=== PATIENT | male | born 1955 | race Caucasian/White ===

== ENCOUNTER 2018-02-24 07:55 | Inpatient (IN) | payer BC ==
[2018-02-24 09:04] VITALS: BMI 30.7
[2018-02-24] MEDS ORDERED: oxyCODONE HCL 10 MG SUSTAINED ACTING TABLET ONE (10:08)
[2018-02-24] MEDS ORDERED: CELECOXIB 200 MG CAPSULE ONE (10:09)
[2018-02-24] MEDS ORDERED: SODIUM CHLORIDE 0.9% P/F 10 ML VIAL IJ ONE (10:11)
[2018-02-24] MEDS ORDERED: BUPIVACAINE LIPOSOME/PF (EXPAREL) 266 MG/20 ML VIAL ONE (10:11)
[2018-02-24] MEDS ORDERED: MIDAZOLAM HCL 2 MG/2 ML SINGLE DOSE VIAL ONE ×2 (10:12→12:32)
[2018-02-24] MEDS ORDERED: ROPIVICAINE 0.2%/MORPH PF/KETOROLAC - 51ML DISP.SYRINGE IA ONE (10:44)
[2018-02-24] MEDS ORDERED: PROPOFOL 20 ML ONE ×3 (11:17)
[2018-02-24] MEDS ORDERED: ceFAZolin SODIUM 1 GM VIAL ONE (11:20)
[2018-02-24] MEDS ORDERED: oxyCODONE HCL 5 MG TABLET PO PRN (12:02)
[2018-02-24] MEDS ORDERED: ONDANSETRON 4 MG/2 ML VIAL IVPUSH PRN ×2 (12:02→15:23)
[2018-02-24] MEDS ORDERED: MAG HYDROX/AL HYDROX/SIMETH 30 ML UNIT-DOSE CUP PO PRN (15:23)
[2018-02-24] MEDS ORDERED: LACTATED RINGERS SOLUTION 1,000 ML IV SCH (15:30)
--- NOTE | 2018-02-24 15:37 | OP ---
Operative Note - Note: Operative Date: 02/24/18 Pre-Operative Diagnosis: Left knee osteoarthritis Operation: Left total knee replacement with Raza system Findings: as dictated Implants: as dictated Post-Operative Diagnosis: Same as Pre-op Surgeon: Nabil Swanson Wagon Person: Frantz Zeng Anesthesiologist/JEWELRY COATER: Nasir Johnson Anesthesia: Spinal (block: adductor canal and selective tibial blocks), Local ( 50ml .2%Ropivacaine, 30mg Ketorlac, 5mg Duramorph injected subcutaneous at end of case) Specimens Removed: bone cuts Estimated Blood Loss (mls): 30 (ml. ) Drains & Tubes with Location: HV placed intra-articular Fluid Volume Replaced (mls): 600 (ml LR. Tourniquet time:113mins at 300mmHg)
--- NOTE | 2018-02-24 15:50 | SURG ---
Surgery Lead Vulcanizing Operator Note Lead Vulcanizing Operator: Frantz Zeng PA-C (Suzy) Date of Service: 02/24/18 Diagnosis: left knee osteoarthritis Procedure: left total knee replacement I was present for the entirety of the operative procedure. For further detail, please refer to operative report. Visit type - Case Type Case Type: Scheduled - Emergency Emergency Visit: No - New patient This patient is new to me today: Yes Date on this admission: 02/24/18 - Critical Care Critical Care patient: No
[2018-02-24] MEDS ORDERED: morphine SULFATE 4 MG/ML VIAL IVPUSH PRN (15:53)
[2018-02-24] MEDS: LACTATED RINGERS SOLUTION 1,000 ML IV SCH (17:21)
[2018-02-24] MEDS: FERROUS SO4 325 MG TABLET (FP) PO SCH (17:21)
[2018-02-24] MEDS: ACETAMINOPHEN 500 MG TABLET (FP) PO PRN (17:22)
[2018-02-24] MEDS: SENNOSIDES/DOCUSATE COMBO (SENNA PLUS) TABLET (UD) PO SCH (21:28)
[2018-02-24] MEDS: ASPIRIN 325 MG TABLET PO SCH (21:28)
[2018-02-24] MEDS: ATORVASTATIN CA 10 MG TABLET (FP) PO SCH (21:28)
[2018-02-24] MEDS: ASCORBIC ACID 500 MG TABLET (FP) PO SCH (21:28)
[2018-02-24] MEDS: CELECOXIB 200 MG CAPSULE PO SCH (21:28)
[2018-02-24] MEDS: oxyCODONE HCL 5 MG TABLET PO PRN (21:29)
[2018-02-24] MEDS: CEFAZOLIN 2 GM/D5W 2 GM/50 ML ML IVPB SCH (21:34)
[2018-02-24] MEDS ORDERED: oxyCODONE HCL 10 MG SUSTAINED ACTING TABLET PO SCH (22:00)
[2018-02-25] MEDS: oxyCODONE HCL 5 MG TABLET PO PRN ×5 (00:37→13:23)
[2018-02-25] MEDS: ACETAMINOPHEN 500 MG TABLET (FP) PO PRN ×2 (03:50→11:26)
[2018-02-25] MEDS: CEFAZOLIN 2 GM/D5W 2 GM/50 ML ML IVPB SCH (03:51)
[2018-02-25] MEDS: FERROUS SO4 325 MG TABLET (FP) PO SCH ×2 (08:08→16:58)
[2018-02-25 08:36] LABS: HEMATOCRIT 44.3 % (35.4-49); HEMOGLOBIN 14.9 GM/dl (11.7-16.9); MCH 31.9 pg (25.7-33.7); MCHC 33.6 g/dl (32.0-35.9); MEAN CELL VOLUME 94.9 fl (80-96); MEAN PLT VOLUME 7.9 fl (7.5-11.1); PLATELET COUNT 254 K/MM3 (134-434); RBC 4.66 M/mm3 (4.00-5.60); RDW 12.4 % (11.9-15.9); WHITE BLOOD COUNT 11.8 K/mm3 (4.0-10.8)
[2018-02-25 08:42] LABS: ANION GAP 6 MMOL/L (8-16); BLOOD UREA NITROGEN 21 mg/dl (7-18); CALCIUM 8.5 mg/dl (8.4-10.2); CHLORIDE 102 mmol/L (98-107); CO2 25 mmol/L (22-28); CREATININE 1.1 mg/dl (0.6-1.3); GLUCOSE,RANDOM 122 mg/dl (74-106); POTASSIUM 4.1 mmol/L (3.5-5.1); SODIUM 133 mmol/L (136-145)
--- NOTE | 2018-02-25 09:23 | OP ---
DATE OF OPERATION: 02/24/2018 PREOPERATIVE DIAGNOSIS: Left knee osteoarthritis. POSTOPERATIVE DIAGNOSIS: Left knee osteoarthritis. OPERATION PERFORMED: Left posterior-stabilized total knee arthroplasty. SURGEON: Nabil Swanson MD BANDAGE WINDING MACHINE OPERATOR: PRATIK TYPE OF ANESTHESIA: Spinal and block. DISPOSITION: Patient returned to the recovery room in stable condition. COMPONENTS USED: [employer] size 4 Press-Fit femur, size 5 Press-Fit tibia, a 13-mm posterior-stabilized articular insert, and 31-mm cemented patella. DISPOSITION: Patient returned to the recovery room in stable condition. DRAINS PLACED: One Hemovac. ESTIMATED BLOOD LOSS: Less than 50 mL. TOTAL TOURNIQUET TIME: 110 minutes. Releases were needed to a medial soft tissue release as well as a full medial release with an elevator down the medial tibia. Preoperative flexion contracture of 15 degrees and varus of 12 degrees. Postoperative range of motion 0-135 degrees, equal balance in varus and valgus stress, and flexion and extension. FINDINGS: Severe tricompartmental arthritis. INDICATIONS FOR PROCEDURE: Patient failed nonoperative treatment for left knee arthritis and was indicated for left total knee replacement. Preoperatively in the waiting area as well as in the office, I had a long discussion with the patient regarding the plan, the expected outcome, and the risks, benefits, and alternatives of surgery. The risks include, but are not limited to, infection which may require future surgery and removal of implants; bleeding which may require transfusion; damage to nerves, arteries, veins, tendons, muscles, and other adjacent structures leading to possible numbness, weakness, decreased function, and/or possible need for surgical repair. Also discussed was the possibility of intraoperative and postoperative fractures, implant loosening, stiffness, need for extensive therapy, and need for revision for a variety of reasons. We also discussed blood clots and other possible medical complications. This was discussed at length, and consent was obtained. PROCEDURE IN DETAIL: Patient was taken to the operating room and placed on the operating table in supine position. Following induction of spinal anesthesia, a well-padded tourniquet was placed high on the left thigh, and the left lower extremity was prepped and draped in a sterile fashion. A timeout was performed to confirm the correct side, verify that the site was marked, and confirm the correct patient and procedure to be performed as well as that the patient received the appropriate preoperative antibiotics and tranexamic acid and had a compression device on the nonoperative leg. Tourniquet was elevated, followed by a midline incision in the medial parapatellar arthrotomy. Checkpoints were placed in the tibia and femur. Arrays were placed in the tibia and femur, and the patient was registered. Varus/valgus stress was performed in flexion and extension. We adjusted the robot and cuts appropriately. However, even with this reaching maximum acceptable values, we could not obtain equal balance with it, and we planned for release of soft tissues after bony cuts. We then made all our bony cuts while protecting the surrounding soft tissues. A laminar ice cream vault worker was placed sequentially in the medial and lateral joint spaces. Posterior osteophytes, cruciate ligaments, and menisci were all excised. We then placed a spacer block, and in order to obtain appropriate balance, we needed to run an elevator below the pes, down the medial tibia, releasing the superficial MCL. Once this was done, we had equal balance in both flexion and extension and to varus and valgus stress. We then placed a trial tibial component and femoral component after cutting the box, and with a 13-mm polyethylene, we had appropriate balance, soft tissue tension, and range of motion and patellar tracking. The patella was then measured at 24 mm and was cut down to 15 mm using a guide. It was reconstructed with a 31-mm button, and we performed a lateral double cut. With the patella trial in place, the patella tracked centrally. There was good soft tissue tension, balance, and range of motion. We then punched the tibia in the appropriate external rotation and drilled for our lug holes. We then placed a Press-Fit tibial and femoral components after a 3-minute soak with a diluted Betadine solution and copiously irrigating the knee. We then inserted our final polyethylene, and it seated flush, and cemented the patella and removal all excess cement. Once cement was hardened, we had full extension. We had flexion to 125 degrees. We were balanced with regards to varus and valgus stress, with equal gaps medial and laterally in both flexion and extension. A deep drain was placed. The wound was copiously irrigated. A local anesthetic was injected. Checkpoints and arrays were removed. The arthrotomy was closed with 0 Vicryl and 0 V-Loc. With the arthrotomy closed, there was good stability, soft tissue tension, patella tracking, and range of motion. Next, 2-0 Vicryl and johny were used for the skin, and the knee was wrapped in a dry, sterile compressive dressing. The tourniquet was released. Compartments were soft at the end of the procedure. Pulses were palpated. The patient was returned to the recovery room in stable condition, will be mobilized weightbearing as tolerated. WOUND CLASSIFICATION: Clean. COMPLICATIONS: None. SPECIMEN: Bone. Jeremy SIMON/[id number]
[2018-02-25] MEDS: ASCORBIC ACID 500 MG TABLET (FP) PO SCH (09:31)
[2018-02-25] MEDS: CELECOXIB 200 MG CAPSULE PO SCH (09:31)
[2018-02-25] MEDS: SENNOSIDES/DOCUSATE COMBO (SENNA PLUS) TABLET (UD) PO SCH ×2 (09:31→21:10)
[2018-02-25] MEDS: ASPIRIN 325 MG TABLET PO SCH ×2 (09:31→21:10)
[2018-02-25] MEDS: OXYMETAZOLINE 0.05% NASAL SOLUTION 15 ML BOTTLE NS SCH (09:31)
[2018-02-25] MEDS: PANTOPRAZOLE 40 MG TABLET (FP) PO SCH (09:31)
--- NOTE | 2018-02-25 09:45 | PN ---
Progress Note (short form) - Note Progress Note: patient seen and examined, patient controlled, no cp/sob. has been up walking laps in good labs and vitals reviewed drain removed dressing dry compartments soft nvid A/P: POD#1 s/p L TKA -wbat, pt, ot -asa and mechanical for vte proph -continue to monitor, dispo likely tomorrow if stable
[2018-02-25] MEDS ORDERED: MULTIVITAMINS (DAILY MVI) TABLET (FP) PO SCH (10:00)
[2018-02-25] MEDS: LACTATED RINGERS SOLUTION 1,000 ML IV SCH (13:24)
--- NOTE | 2018-02-25 15:29 | PN ---
Physical Exam: SUBJECTIVE: Patient seen and examined oob to chair. Had significant pain overnight, better managed today. Has walked 3-4 times. OBJECTIVE: Vital Signs Period Temp Pulse Resp BP Sys/Castañeda Pulse Ox Last 24 Hr 97.9 F-99.1 F 63-104 17-20 106-139/59-82 94-98 GENERAL: The patient is awake, alert, and fully oriented, in no acute distress. LUNGS: Breath sounds equal, clear to auscultation bilaterally, no wheezes, no crackles, no accessory muscle use. HEART: Regular rate and rhythm, S1, S2 ABDOMEN: Soft, nontender, nondistended LOWER EXTREMITIES: 2+ DP pulses, warm, well-perfused; SCDs, TEDs, left knee surgical dressing c/d/i NEUROLOGICAL: Cranial nerves II through XII grossly intact. Normal speech, gait not observed. SKIN: Warm, dry, normal turgor Laboratory Results - last 24 hr 02/25/18 02/25/18 07:15 07:15 WBC 11.8 H RBC 4.66 Hgb 14.9 Hct 44.3 MCV 94.9 MCH 31.9 MCHC 33.6 RDW 12.4 Plt Count 254 MPV 7.9 Sodium 133 L Potassium 4.1 Chloride 102 Carbon Dioxide 25 Anion Gap 6 L BUN 21 H Creatinine 1.1 Creat Clearance w eGFR > 60 Random Glucose 122 H D Calcium 8.5 Current Medications Generic Name Dose Route Start Last Admin Trade Name Freq PRN Reason Stop Dose Admin Al Hydroxide/Mg Hydroxide 30 ml 02/24/18 15:23 Mylanta Oral Suspension - PO Q4H PRN DYSPEPSIA Aspirin 325 mg 02/24/18 22:00 02/25/18 09:31 Asa - PO 325 mg BID YURY Administration Atorvastatin Calcium 20 mg 02/24/18 22:00 02/24/18 21:28 Lipitor - PO 20 mg HS YURY Administration Ferrous Sulfate 325 mg 02/24/18 17:30 02/25/18 08:08 Feosol - PO 325 mg BIDWM YURY Administration Ondansetron HCl 4 mg 02/24/18 15:23 Zofran Injection IVPUSH Q6H PRN NAUSEA Oxycodone/Acetaminophen 1 combo 02/25/18 16:29 Percocet 5/325 - PO Q4H PRN PAIN LEVEL 4 - 6 Oxymetazoline HCl 1 spray 02/25/18 10:00 02/25/18 09:31 Afrin - NS 1 spray DAILY YURY Administration Pantoprazole Sodium 40 mg 02/25/18 10:00 02/25/18 09:31 Protonix - PO 40 mg DAILY YURY Administration Senna/Docusate Sodium 2 tablet 02/24/18 22:00 02/25/18 09:31 Pericolace - PO 2 tablet BID YURY Administration Trazodone HCl 100 mg 02/25/18 22:00 Desyrel - PO HS [facility] ASSESSMENT/PLAN: 63 year-old man with a PMH significant for HLD, anxiety, and left knee osteoarthritis, admitted for left knee replacement. Left knee osteoarthritis s/p FIONA left knee replacement on 02/24 --POD #1 --drain pulled earlier today by surgery --pain presently well-managed --bowel regimen --incentive spirometry --advanced diet --continue ASA 325mg BID --continue protonix Hyperlipidemia --continue Lipitor Anxiety --continue trazadone qhs FEN Fluids: PO intake adequate Electrolytes: replete as indicated Nutrition: regular diet DVT prophylaxis: SCDs, TEDs, oob, ambulation Physical therapy Dispo: continues to require inpatient care. Full code.
[2018-02-25] MEDS ORDERED: FLUTICASONE PROP 0.05% 16 GM NASAL SPRAY NS SCH (17:00)
--- NOTE | 2018-02-25 17:01 | CONSULT ---
Consultation: REQUESTING PROVIDER: Dr. Swanson CONSULT REQUEST: We have been asked to medically evaluate and monitor this patient post-operatively. HISTORY OF PRESENT ILLNESS: 63 year-old man with a PMH significant for HLD, anxiety, and left knee osteoarthritis, admitted for left knee replacement. REVIEW OF SYSTEMS - postoperative CONSTITUTIONAL: Absent: fever, chills, diaphoresis, generalized weakness, malaise, loss of appetite, weight change HEENT: Absent: rhinorrhea, nasal congestion, throat pain, throat swelling, difficulty swallowing, mouth swelling, ear pain, eye pain, visual changes CARDIOVASCULAR: Absent: chest pain, syncope, palpitations, irregular heart rate, lightheadedness , peripheral edema RESPIRATORY: Absent: cough, shortness of breath, dyspnea with exertion, orthopnea, wheezing, stridor, hemoptysis GASTROINTESTINAL: Absent: abdominal pain, abdominal distension, nausea, vomiting, diarrhea, constipation, melena, hematochezia GENITOURINARY: Absent: dysuria, frequency, urgency, hesitancy, hematuria, flank pain, genital pain MUSCULOSKELETAL: +left knee pain Absent: myalgia, arthralgia, joint swelling, back pain, neck pain SKIN: Absent: rash, itching, pallor HEMATOLOGIC/IMMUNOLOGIC: Absent: easy bleeding, easy bruising, lymphadenopathy, frequent infections ENDOCRINE: Absent: unexplained weight gain, unexplained weight loss, heat intolerance, cold intolerance NEUROLOGIC: Absent: headache, focal weakness or paresthesias, dizziness, unsteady gait, seizure, mental status changes, bladder or bowel incontinence PSYCHIATRIC: Absent: anxiety, depression, suicidal or homicidal ideation, hallucinations. PHYSICAL EXAMINATION Vital Signs - 24 hr 02/24/18 02/24/18 02/24/18 18:00 20:22 22:00 Temperature 97.9 F 98.5 F Pulse Rate 82 80 Respiratory 19 20 19 Rate Blood Pressure 113/66 123/73 O2 Sat by Pulse 98 98 94 L Oximetry (%) 02/25/18 02/25/18 02/25/18 06:00 09:20 14:00 Temperature 99.1 F 98.7 F 98.3 F Pulse Rate 85 101 H 104 H Respiratory 17 19 18 Rate Blood Pressure 106/67 116/59 L 139/79 O2 Sat by Pulse 97 95 95 Oximetry (%) GENERAL: The patient is awake, alert, and fully oriented, in no acute distress. LUNGS: Breath sounds equal, clear to auscultation bilaterally, no wheezes, no crackles, no accessory muscle use. HEART: Regular rate and rhythm, S1, S2 ABDOMEN: Soft, nontender, nondistended LOWER EXTREMITIES: 2+ DP pulses, warm, well-perfused; SCDs, TEDs, left knee surgical dressing c/d/i NEUROLOGICAL: Cranial nerves II through XII grossly intact. Normal speech, gait not observed. SKIN: Warm, dry, normal turgor Laboratory Results - last 24 hr 02/25/18 02/25/18 07:15 07:15 WBC 11.8 H RBC 4.66 Hgb 14.9 Hct 44.3 MCV 94.9 MCH 31.9 MCHC 33.6 RDW 12.4 Plt Count 254 MPV 7.9 Sodium 133 L Potassium 4.1 Chloride 102 Carbon Dioxide 25 Anion Gap 6 L BUN 21 H Creatinine 1.1 Creat Clearance w eGFR > 60 Random Glucose 122 H D Calcium 8.5 Active Medications Generic Name Dose Route Start Last Admin Trade Name Freq PRN Reason Stop Dose Admin Al Hydroxide/Mg Hydroxide 30 ml 02/24/18 15:23 Mylanta Oral Suspension - PO Q4H PRN DYSPEPSIA Aspirin 325 mg 02/24/18 22:00 02/25/18 09:31 Asa - PO 325 mg BID YURY Administration Atorvastatin Calcium 20 mg 02/24/18 22:00 02/24/18 21:28 Lipitor - PO 20 mg HS YURY Administration Ferrous Sulfate 325 mg 02/24/18 17:30 02/25/18 08:08 Feosol - PO 325 mg BIDWM YURY Administration Ondansetron HCl 4 mg 02/24/18 15:23 Zofran Injection IVPUSH Q6H PRN NAUSEA Oxycodone/Acetaminophen 1 combo 02/25/18 16:29 Percocet 5/325 - PO Q4H PRN PAIN LEVEL 4 - 6 Oxymetazoline HCl 1 spray 02/25/18 10:00 02/25/18 09:31 Afrin - NS 1 spray DAILY YURY Administration Pantoprazole Sodium 40 mg 02/25/18 10:00 02/25/18 09:31 Protonix - PO 40 mg DAILY YURY Administration Senna/Docusate Sodium 2 tablet 02/24/18 22:00 02/25/18 09:31 Pericolace - PO 2 tablet BID YURY Administration Trazodone HCl 100 mg 02/25/18 22:00 Desyrel - PO HS [facility] ASSESSMENT/PLAN: 63 year-old man with a PMH significant for HLD, anxiety, and left knee osteoarthritis, admitted for left knee replacement. Left knee osteoarthritis s/p FIONA left knee replacement on 02/24 --POD #1 --drain pulled earlier today by surgery --pain presently well-managed --bowel regimen --incentive spirometry --advanced diet --continue ASA 325mg BID --continue protonix Hyperlipidemia --continue Lipitor Anxiety --continue trazadone qhs FEN Fluids: PO intake adequate Electrolytes: replete as indicated Nutrition: regular diet DVT prophylaxis: SCDs, TEDs, oob, ambulation Physical therapy Dispo: We will continue to follow the patient. Thank you for this consultative opportunity. Visit type - Emergency Visit Emergency Visit: No - New Patient This patient is new to me today: Yes Date on this admission: 02/25/18 - Critical Care Critical Care patient: No
[2018-02-25] MEDS: ATORVASTATIN CA 10 MG TABLET (FP) PO SCH (21:10)
[2018-02-25] MEDS ORDERED: traZODone HCL 50 MG TABLET (FP) PO SCH (22:00)
[2018-02-26] MEDS: FERROUS SO4 325 MG TABLET (FP) PO SCH (08:45)
[2018-02-26 09:04] VITALS: BP 119/67; TEMP 99.1
[2018-02-26] MEDS ORDERED: PT OWN MED DRAWER 7, Y5N ONE (09:07)
[2018-02-26] MEDS ORDERED: oxyCODONE HCL 5 MG TABLET PO PRN ×2 (09:08→09:09)
[2018-02-26] MEDS: PANTOPRAZOLE 40 MG TABLET (FP) PO SCH (09:11)
--- NOTE | 2018-02-26 09:11 | PN ---
Progress Note (short form) - Note Progress Note: no events nad vitals and labs reviewed dressing dry nvid calf soft A/P: POD 2 s/p tka dc home asa for vte proph dc instructions reviewed
[2018-02-26] MEDS: ASPIRIN 325 MG TABLET PO SCH (09:12)
[2018-02-26] MEDS: SENNOSIDES/DOCUSATE COMBO (SENNA PLUS) TABLET (UD) PO SCH (09:12)
[2018-02-26] MEDS: OXYMETAZOLINE 0.05% NASAL SOLUTION 15 ML BOTTLE NS SCH (09:12)
[2018-02-26] MEDS ORDERED: ACETAMINOPHEN 500 MG TABLET (FP) PO SCH (09:15)
[2018-02-26 09:30] LABS: HEMATOCRIT 39.3 % (35.4-49); HEMOGLOBIN 13.6 GM/dl (11.7-16.9); MCH 32.5 pg (25.7-33.7); MCHC 34.6 g/dl (32.0-35.9); MEAN PLT VOLUME 8.2 fl (7.5-11.1); PLATELET COUNT 207 K/MM3 (134-434); RBC 4.18 M/mm3 (4.00-5.60); RDW 12.1 % (11.9-15.9); WHITE BLOOD COUNT 12.2 K/mm3 (4.0-10.8)
--- NOTE | 2018-02-26 09:34 | DS ---
Physical Exam: SUBJECTIVE: Patient seen and examined OBJECTIVE: Vital Signs Period Temp Pulse Resp BP Sys/Castañeda Pulse Ox Last 24 Hr 98.3 F-99.2 F 92-123 18-18 115-145/66-79 94-99 PHYSICAL EXAM GENERAL: The patient is awake, alert, and fully oriented, in no acute distress. HEAD: Normal with no signs of trauma. EYES: PERRL, extraocular movements intact, sclera anicteric, conjunctiva clear. ENT: Ears normal, nares patent, oropharynx clear without exudates, moist mucous membranes. NECK: Trachea midline, full range of motion, supple. LUNGS: Breath sounds equal, clear to auscultation bilaterally, no wheezes, no crackles, no accessory muscle use. HEART: Regular rate and rhythm, S1, S2 without murmur, rub or gallop. ABDOMEN: Soft, nontender, nondistended, normoactive bowel sounds, no guarding, no rebound, no hepatosplenomegaly, no masses. EXTREMITIES: 2+ pulses, warm, well-perfused, no edema. NEUROLOGICAL: Cranial nerves II through XII grossly intact. Normal speech, gait not observed. PSYCH: Normal mood, normal affect. SKIN: Warm, dry, normal turgor, no rashes or lesions noted. LABS HOSPITAL COURSE: Date of Admission:02/24/18 Date of Discharge: 02/26/18 Minutes to complete discharge: 35 Discharge Summary Reason For Visit: LEFT KNEE OSTEOARTHRITIS Condition: Improved - Instructions Diet, Activity, Other Instructions: Please follow the instructions given to you today by Dr. Swanson. Referrals: Nabil Swanson MD [Staff Physician] - Disposition: HOME - Home Medications Comprehensive Discharge Medication List: Ambulatory Orders Simvastatin [Zocor -] 20 mg PO DAILY 02/23/18 Fluticasone Prop 0.05% Nasal [Flonase -] 1 spray NS DAILY 02/25/18 traZODone HCL [Trazodone HCl] 100 mg PO HS 02/25/18 This patient is new to me today: No Emergency Visit: No Critical Care patient: No - Discharge Referral Referred to [facility] Med P.C.: No
[2018-02-26] MEDS ORDERED: CELECOXIB 200 MG CAPSULE PO SCH (10:00)
[2018-02-26 11:33] VITALS: PULSE 116
--- NOTE | 2018-03-02 11:50 | PATH ---
Surgical Pathology Report Patient Name: CLINTON ANGULO Med. Rec. #: [id number] /Age/Gender: 1955 (Age: 63) / M Account: [id number] Location: [facility] MED-SURG Taken: 02/24/2018 Received: 02/24/2018 Reported: 03/02/2018 Physicians: Nabil Swanson M.D. Specimen(s) Received LEFT KNEE Clinical History Osteoarthritis left knee Final Diagnosis Bone, knee, LEFT, posterior stabilized total knee arthroplasty: BOne WITH degenerative joint disease, and fibroadipose tissue. Electronically Signed Laura Houston M.D. Gross Description Received in formalin labeled "bone left knee," is an 11.0 x 11.0 x 1.8 cm aggregate of multiple portions of bone and soft tissue. The tibial plateau measures 8.0 x 5.5 x 1.3 cm. There are multiple areas of eburnation present, measuring up to 2.4 cm in greatest dimension. The remaining articular surfaces are hernandez-yellow and focally granular. The underlying trabecular bone is yellow and hard. Head Piece Assembler sections are submitted in one cassette, following decalcification. 02/28/201802/28/2018
== END 2018-02-26 12:33 | disposition home or self-care (01) | DRG 470 ==
LOC: FM/S 07:55
PROVIDERS: ADMIT Internal Medicine; ATTEND Orthopaedic Surgery
PROC: 0SRD0J9 Replacement of Left Knee Joint with Synthetic Substitute, Cemented, Open Approach (ICD-10-PCS; principal; 2018-02-24 13:01)
DX: M17.12 Unilateral primary osteoarthritis, left knee (principal); E78.5 Hyperlipidemia, unspecified; F41.9 Anxiety disorder, unspecified
CPT/HCPCS: 36415; 73560-TC-LT-FY; 80048; 85027; 88305-TC; 88311-TC; 94760; 97116-GP